=== PATIENT | male | born 1975 | race Two or more races ===

== ENCOUNTER 2018-08-18 11:11 | Outpatient (CLI) | payer OTHER ==
[~2018-08-18 11:11] MED LIST: PROPANOLOL 60 MG; TAMBOCOR50 MG PO; WELLBUTRIN SR150 MG
== END 2018-08-18 11:21 | disposition home or self-care (01) ==
LOC: RAD 11:11
DX: M25.571 Pain in right ankle and joints of right foot (principal)

== ENCOUNTER 2019-01-08 00:16 | Emergency (ER) | payer OTHER ==
[~2019-01-08] VITALS: Ht 180.3 cm; Wt 102.1 kg
== END 2019-01-08 06:43 | disposition home or self-care (01) ==
LOC: ER 00:16 → CPU-OBS 00:18 → ER 00:18
DX: I48.91 Unspecified atrial fibrillation (principal); R00.2 Palpitations
CPT/HCPCS: G0378; G0379; 93005

== ENCOUNTER 2019-05-03 11:52 | Emergency (ER) | payer OTHER ==
[~2019-05-03] VITALS: Ht 180.3 cm; Wt 99.8 kg
[2019-05-03] MEDS ORDERED: CHILDREN'S ASPI81 MG PO (12:15)
[2019-05-03] MEDS ORDERED: AZELASTINE205.5 MCG/ NASAL (12:29)
[2019-05-03] MEDS ORDERED: ZITHROMAX500 MG PO (12:29)
== END 2019-05-03 12:52 | disposition home or self-care (01) ==
LOC: ER 11:52
DX: J01.80 Other acute sinusitis (principal)

== ENCOUNTER 2021-09-26 22:11 | Emergency (ER) | payer OTHER ==
[~2021-09-26] VITALS: Ht 180.3 cm; Wt 102.1 kg
[~2021-09-26 22:11] MED LIST changes: +AZELASTINE205.5 MCG/ NASAL; +CHILDREN'S ASPI81 MG PO; +ZITHROMAX500 MG PO
[2021-09-27] MEDS ORDERED: PEPCID40 MG PO (05:10)
[2021-09-27] MEDS ORDERED: PROTONIX40 MG PO (05:10)
== END 2021-09-27 05:28 ==
LOC: ER 22:11
DX: R07.89 Other chest pain (principal); R00.2 Palpitations; R06.02 Shortness of breath; R53.81 Other malaise; I10 Essential (primary) hypertension; I48.91 Unspecified atrial fibrillation; Z79.01 Long term (current) use of anticoagulants; Z88.0 Allergy status to penicillin

== ENCOUNTER 2022-07-03 18:45 | Emergency (ER) | payer OTHER ==
[~2022-07-03] VITALS: Ht 180.3 cm; Wt 102.1 kg
[~2022-07-03 18:45] MED LIST changes: +PEPCID40 MG PO; +PROTONIX40 MG PO
[2022-07-03] MEDS ORDERED: CELEBREX200MG PO (21:11)
== END 2022-07-03 22:22 | disposition home or self-care (01) ==
LOC: ER 18:45
DX: M75.50 Bursitis of unspecified shoulder (principal)

== ENCOUNTER 2023-02-20 09:03 | Emergency (ER) | payer OTHER ==
[~2023-02-20] VITALS: Ht 180.3 cm; Wt 102.1 kg
[~2023-02-20 09:03] MED LIST changes: +CELEBREX200MG PO
== END 2023-02-20 10:05 | disposition home or self-care (01) ==
LOC: ER 09:03
DX: K11.20 Sialoadenitis, unspecified (principal); I10 Essential (primary) hypertension; Z88.0 Allergy status to penicillin

== ENCOUNTER 2024-05-11 11:46 | Emergency (ER) | payer OTHER ==
[~2024-05-11] VITALS: Ht 180.3 cm; Wt 102.1 kg
[2024-05-11] MEDS ORDERED: DEXAMETHASONE SODIUM PHOSPHATE 4 MG/ML VIAL IM ONE (14:30)
[2024-05-11] MEDS ORDERED: AZITHROMYCIN 500 MG TABLET PO ONE (14:30)
[2024-05-11] MEDS ORDERED: ACETAMINOPHEN 500 MG GEL..CAP PO ONE ×2 (14:30→15:06)
[2024-05-11] MEDS ORDERED: DEXAMETHASONE SODIUM PHOSPHATE 4 MG/ML VIAL ONE (15:06)
[2024-05-11 15:38] LABS: HEMATOCRIT 46.8 % (39.0-48.0); HEMOGLOBIN 16.1 g/dL (13-16.00); MEAN CORPUSCULAR HEMOGLOBIN 31.2 pg (27.00-32.0); MEAN CORPUSCULAR HGB CONC 34.3 g/dl (32.0-36.0); PLATELET COUNT 156 K/uL (150-450); RED BLOOD COUNT 5.15 M/uL (4.00-6.00)
== END 2024-05-11 17:03 | disposition home or self-care (01) ==
LOC: ER 11:48
PROVIDERS: General Practice
DX: J06.9 Acute upper respiratory infection, unspecified (principal); I10 Essential (primary) hypertension; Z91.013 Allergy to seafood; Z88.0 Allergy status to penicillin; Z20.822 Contact with and (suspected) exposure to COVID-19
CPT/HCPCS: 36415; 96372; 99282; J1100